=== PATIENT | male | born 1945 | race Caucasian/White ===

== ENCOUNTER 2025-04-13 17:22 | Inpatient (IN) | payer MEDICARE, MEDICAID ==
[~2025-04-13] VITALS: Ht 182.9 cm; Wt 89.4 kg
[~2025-04-13 17:22] MED LIST: AMI2 PO; AMLO5TAB88 MT; APIX5TAB PO; CHOL100022 PO; CLON-493 MT; DIPH25CA83 MT; DIVA250T45 PO; HYDR12.54 MT; IPRA3AMP31 NEB; PANT40TA51 MT; QUET100T MT; SUCR1TAB MT; TC1U15 TP
[2025-04-13 17:27] VITALS: O2SAT 100
[2025-04-13 18:15] LABS: BASOPHILS % 1.1 % (0.0-2.0); EOSINOPHILS % 1.9 % (0.0-5.0); HEMATOCRIT. 28.5 % (42.0-52.0); HEMOGLOBIN. 9.3 g/dL (14.0-18.0); LYMPHOCYTES % 16.5 % (20.0-50.0); MEAN PLATELET VOLUME 8.2 fl (7.4-10.4); MONOCYTES % 10.4 % (2.0-8.0); NEUTROPHILS % 70.1 % (40.0-76.0); PLATELET 426 x1000/uL (130-400); RED BLOOD CELL COUNT 3.45 mill/uL (4.7-6.1); RED CELL DISTRIBUTION WIDTH 16.5 % (11.6-14.6)
[2025-04-13 18:39] LABS: ASPARTATE AMINOTRANSFERASE 21 IU/L (<34); UREA NITROGEN BLOOD 50 mg/dL (9-23)
[2025-04-13 18:40] LABS: BILIRUBIN DIRECT 0.1 mg/dL (<=3.0); BILIRUBIN TOTAL 0.3 mg/dL (0.1-1.0); PROTEIN TOTAL 8.0 g/dL (6.0-8.3); TROPONIN I HIGH SENSITIVITY 16 ng/L (3.0-53)
[2025-04-13 18:42] LABS: CREATININE 3.5 mg/dL (0.6-1.3)
[2025-04-13 19:53] VITALS: BP 123/68; PULSE 70; RESP 19; TEMP 36.418
[2025-04-13 21:05] LABS: INR 1.1
[2025-04-13 21:09] LABS: TROPONIN I HIGH SENSITIVITY 15 ng/L (3.0-53)
[2025-04-13] MEDS ORDERED: ACETAMINOPHEN 325MG TABLET PO PRN ×2 (21:15)
[2025-04-13] MEDS ORDERED: CLONIDINE 0.1MG TABLET PO PRN (21:15)
[2025-04-13] MEDS ORDERED: ONDANSETRON HCL 4MG/2ML INJ IV PRN (21:15)
[2025-04-13] MEDS ORDERED: GUAIFENESIN 200MG/10ML SUGAR FREE UDC PO PRN (21:15)
[2025-04-13] MEDS ORDERED: MAGNESIUM/ALUMINUM HYDROXIDE/SIMETHICONE 30ML UDC PO PRN (21:15)
[2025-04-13] MEDS ORDERED: IPRATROPIUM/ALBUTEROL 0.5-3(2.5)MG/3ML NEB HHN PRN (21:15)
[2025-04-13] MEDS ORDERED: ENOXAPARIN 30MG/0.3ML SYR SUBCUT SCH (22:00)
[2025-04-14] VITALS: BP 94/52; PULSE 70; RESP 20; TEMP 36.8; O2SAT 94
[2025-04-14] MEDS: SODIUM CHLORIDE 0.9% 1,000 ML IV SCH (00:08)
[2025-04-14 03:00] LABS: PHOSPHORUS 4.1 mg/dL (2.5-4.9)
[2025-04-14 04:00] VITALS: BP 133/70; PULSE 70; RESP 19; TEMP 36.8; O2SAT 98
[2025-04-14 06:59] LABS: BASOPHILS % 0.4 % (0.0-2.0); EOSINOPHILS % 0.9 % (0.0-5.0); HEMATOCRIT. 27.7 % (42.0-52.0); HEMOGLOBIN. 8.9 g/dL (14.0-18.0); LYMPHOCYTES % 13.7 % (20.0-50.0); MEAN PLATELET VOLUME 8.7 fl (7.4-10.4); MONOCYTES % 11.0 % (2.0-8.0); NEUTROPHILS % 74.0 % (40.0-76.0); PLATELET 401 x1000/uL (130-400); RED BLOOD CELL COUNT 3.34 mill/uL (4.7-6.1); RED CELL DISTRIBUTION WIDTH 16.2 % (11.6-14.6)
[2025-04-14 07:24] LABS: CREATININE 3.4 mg/dL (0.6-1.3); TRIGLYCERIDE 121.0 mg/dL (0-150); UREA NITROGEN BLOOD 60.0 mg/dL (9-23)
[2025-04-14 07:25] LABS: LDL CHOLESTEROL 69.0 mg/dL (5-100)
[2025-04-14 07:26] LABS: T4 FREE 0.93 ng/dL (0.89-1.76)
[2025-04-14 08:00] VITALS: BP 127/70; PULSE 74; RESP 18; TEMP 36.5; O2SAT 98
[2025-04-14] MEDS: QUETIAPINE FUMARATE 50MG TABLET PO SCH (09:09)
[2025-04-14] MEDS: PANTOPRAZOLE SODIUM 40 MG/VIAL IV SCH (09:09)
[2025-04-14] MEDS: AMIODARONE 200MG TABLET PO SCH (09:09)
[2025-04-14] MEDS: APIXABAN 2.5 MG TABLET PO SCH (09:10)
[2025-04-14 10:05] LABS: CLARITY URINE TURBID (CLEAR); COLOR URINE YELLOW (YELLOW); GLUCOSE URINE NEGATIVE (NEGATIVE); KETONES URINE NEGATIVE (NEGATIVE); LEUKOCYTE ESTERASE URINE 3+ (NEGATIVE); NITRITE URINE POSITIVE (NEGATIVE); OCCULT BLOOD URINE 2+ (NEGATIVE); PH URINE 6.5 (4.5-8.0); PROTEIN URINE 2+ (NEGATIVE); SPECIFIC GRAVITY URINE 1.012 (1.005-1.030); UROBILINOGEN URINE 1.0 E.U./dL (0.2-1.0)
[2025-04-14 10:18] LABS: BACTERIA URINE 4+; RBC URINE 15-25 /hpf (0-2); SQUAMOUS EPITHELIAL CELL URINE NONE SEEN /lpf (RARE/1+); WBC URINE TNTC /hpf (0-2); YEAST URINE NONE SEEN
[2025-04-14 11:51] VITALS: BP 121/66; PULSE 70; RESP 20; TEMP 36.2; O2SAT 100
[2025-04-14] MEDS ORDERED: CEFTRIAXONE 1GM/50ML 50 ML IV SCH (13:00)
[2025-04-14] MEDS: MEROPENEM 1G/100ML 100 ML IV SCH (14:01)
[2025-04-14 16:07] VITALS: BP 118/69; PULSE 68; RESP 18; TEMP 36.3; O2SAT 98
[2025-04-14 20:00] VITALS: BP 128/67; PULSE 69; RESP 18; TEMP 36.7; O2SAT 94
[2025-04-14] MEDS ORDERED: QUETIAPINE FUMARATE 50MG TABLET PO SCH (21:00)
[2025-04-15] VITALS: BP 146/52; PULSE 63; RESP 15; TEMP 36.3; O2SAT 95
[2025-04-15 08:18] VITALS: BP 118/63; PULSE 78; RESP 20; TEMP 37.1; O2SAT 95
[2025-04-15] MEDS: PREDNISONE 20MG TABLET PO SCH (09:05)
[2025-04-15] MEDS: DOCUSATE SODIUM 100MG CAPSULE PO PRN (09:10)
[2025-04-15 11:55] VITALS: BP_SYST 115; BP_SYST 118; BP_DIAS 63; BP_DIAS 68; PULSE 67; PULSE 78; RESP 20; TEMP 36.4; TEMP 37.1; O2SAT 95; O2SAT 98
[2025-04-15 12:04] LABS: HEMATOCRIT. 25.0 % (42.0-52.0); HEMOGLOBIN. 8.0 g/dL (14.0-18.0); MEAN PLATELET VOLUME 8.5 fl (7.4-10.4); PLATELET 396 x1000/uL (130-400); RED BLOOD CELL COUNT 3.01 mill/uL (4.7-6.1); RED CELL DISTRIBUTION WIDTH 16.4 % (11.6-14.6)
[2025-04-15 12:26] LABS: CREATININE 3.1 mg/dL (0.6-1.3); UREA NITROGEN BLOOD 54.0 mg/dL (9-23)
[2025-04-15 16:00] VITALS: BP 121/73; PULSE 69; RESP 18; TEMP 36.3; O2SAT 100
[2025-04-15] MEDS: POTASSIUM CHLORIDE 20MEQ TABLET SR PO SCH ×2 (17:55→20:22)
[2025-04-15 18:05] LABS: BAND% 3.0 % (1.0-6.0); EOSINOPHILS % MANUAL 1.0 % (0.0-5.0); LYMPHOCYTES % MANUAL 2.0 % (20.0-50.0); MONOCYTES % MANUAL 10.0 % (2.0-8.0); NEUTROPHILS % MANUAL 84.0 % (45.0-75.0); PLATELET ESTIMATE NORMAL
[2025-04-15] MEDS: SODIUM CHLORIDE 0.9% 500 ML IV ONE (18:59)
[2025-04-15 20:00] VITALS: BP 110/77; PULSE 74; RESP 18; TEMP 36.3; O2SAT 99
[2025-04-15] MEDS: MUPIROCIN 2% OINT 22GM NS SCH (20:23)
[2025-04-15] MEDS ORDERED: MUPIROCIN 2% OINT 15GM NS SCH (21:00)
[2025-04-16] VITALS: BP 141/71; PULSE 83; RESP 20; TEMP 37.1; O2SAT 96
[2025-04-16 04:00] VITALS: BP 147/76; PULSE 80; RESP 20; TEMP 36.6; O2SAT 95
[2025-04-16 07:46] LABS: BASOPHILS % 0.6 % (0.0-2.0); EOSINOPHILS % 1.5 % (0.0-5.0); HEMATOCRIT. 27.1 % (42.0-52.0); HEMOGLOBIN. 8.4 g/dL (14.0-18.0); LYMPHOCYTES % 10.3 % (20.0-50.0); MEAN PLATELET VOLUME 8.5 fl (7.4-10.4); MONOCYTES % 8.8 % (2.0-8.0); NEUTROPHILS % 78.8 % (40.0-76.0); PLATELET 439 x1000/uL (130-400); RED BLOOD CELL COUNT 3.23 mill/uL (4.7-6.1); RED CELL DISTRIBUTION WIDTH 16.8 % (11.6-14.6)
[2025-04-16 07:50] VITALS: BP 97/62; PULSE 74; RESP 20; TEMP 36.3; O2SAT 100
[2025-04-16 08:10] LABS: CREATININE 2.8 mg/dL (0.6-1.3); UREA NITROGEN BLOOD 42.0 mg/dL (9-23)
[2025-04-16 20:00] VITALS: BP 121/71; PULSE 68; RESP 19; TEMP 36.5; O2SAT 95
[2025-04-17] VITALS: BP 133/76; PULSE 68; RESP 19; TEMP 36.5; O2SAT 95
[2025-04-17 04:00] VITALS: BP 129/73; PULSE 68; RESP 19; TEMP 36.6; O2SAT 94
[2025-04-17 08:00] VITALS: BP 130/73; PULSE 68; RESP 18; TEMP 36.6; O2SAT 98
[2025-04-17 11:04] LABS: BASOPHILS % 1.3 % (0.0-2.0); EOSINOPHILS % 1.1 % (0.0-5.0); HEMATOCRIT. 24.0 % (42.0-52.0); HEMOGLOBIN. 7.8 g/dL (14.0-18.0); LYMPHOCYTES % 15.9 % (20.0-50.0); MEAN PLATELET VOLUME 8.6 fl (7.4-10.4); MONOCYTES % 9.8 % (2.0-8.0); NEUTROPHILS % 71.9 % (40.0-76.0); PLATELET 422 x1000/uL (130-400); RED BLOOD CELL COUNT 2.88 mill/uL (4.7-6.1); RED CELL DISTRIBUTION WIDTH 16.6 % (11.6-14.6)
[2025-04-17 11:24] LABS: CREATININE 2.5 mg/dL (0.6-1.3); UREA NITROGEN BLOOD 37.0 mg/dL (9-23)
[2025-04-17 12:00] VITALS: BP 120/73; PULSE 69; RESP 18; TEMP 36.4; O2SAT 97
[2025-04-17] MEDS: MEROPENEM 1G/100ML 100 ML IV SCH (12:35)
[2025-04-17] MEDS ORDERED: SULF1TAB48 MT (13:22)
[2025-04-17] MEDS ORDERED: APIX2.5T MT (13:26)
[2025-04-18] VITALS: BP 124/76; PULSE 112; RESP 17; TEMP 36.5; O2SAT 95
[2025-04-18 04:00] VITALS: BP 141/81; PULSE 66; RESP 19; TEMP 36.7; O2SAT 97
[2025-04-18 08:00] VITALS: BP 133/80; PULSE 67; RESP 18; TEMP 36.2; O2SAT 96
[2025-04-18 08:19] LABS: BASOPHILS % 0.4 % (0.0-2.0); EOSINOPHILS % 0.6 % (0.0-5.0); HEMATOCRIT. 24.9 % (42.0-52.0); HEMOGLOBIN. 8.2 g/dL (14.0-18.0); LYMPHOCYTES % 17.0 % (20.0-50.0); MEAN PLATELET VOLUME 8.4 fl (7.4-10.4); MONOCYTES % 7.3 % (2.0-8.0); NEUTROPHILS % 74.7 % (40.0-76.0); PLATELET 429 x1000/uL (130-400); RED BLOOD CELL COUNT 3.00 mill/uL (4.7-6.1); RED CELL DISTRIBUTION WIDTH 16.7 % (11.6-14.6)
[2025-04-18 08:39] LABS: CREATININE 2.1 mg/dL (0.6-1.3); UREA NITROGEN BLOOD 38.0 mg/dL (9-23)
[2025-04-18 10:31] VITALS: BP 133/80; PULSE 67; RESP 18; TEMP 97.2
[2025-04-18] MEDS: LORAZEPAM 0.5MG TABLET PO NR (12:30)
[2025-04-30] MEDS ORDERED: SULF1TAB48 MT (14:51)
== END 2025-04-18 13:11 | DRG 872 ==
LOC: ER 17:22 → EDBEDREQ 19:55 → EDBEDREQTM 19:55 → ENRESERV 20:24 → 7WST 20:46 → 4WST 04-16 11:43
PROVIDERS: ADMIT Hospitalist; ATTEND Hospitalist
DX: A41.51 Sepsis due to Escherichia coli [E. coli] (principal); I50.32 Chronic diastolic (congestive) heart failure; G20.A1 Parkinson's disease without dyskinesia, without mention of fluctuations; N17.9 Acute kidney failure, unspecified; N39.0 Urinary tract infection, site not specified; N10 Acute pyelonephritis; Z79.01 Long term (current) use of anticoagulants; B96.20 Unspecified Escherichia coli [E. coli] as the cause of diseases classified elsewhere; I11.0 Hypertensive heart disease with heart failure; F31.9 Bipolar disorder, unspecified; J44.9 Chronic obstructive pulmonary disease, unspecified; D64.9 Anemia, unspecified; E03.9 Hypothyroidism, unspecified; F84.0 Autistic disorder; Z16.12 Extended spectrum beta lactamase (ESBL) resistance; K62.82 Dysplasia of anus; E87.6 Hypokalemia; S30.810A Abrasion of lower back and pelvis, initial encounter; I48.0 Paroxysmal atrial fibrillation; Z79.899 Other long term (current) drug therapy; Z86.19 Personal history of other infectious and parasitic diseases; Z99.3 Dependence on wheelchair; Z22.322 Carrier or suspected carrier of Methicillin resistant Staphylococcus aureus; X58.XXXA Exposure to other specified factors, initial encounter; Y93.89 Activity, other specified; Y92.89 Other specified places as the place of occurrence of the external cause; Y99.8 Other external cause status
CPT/HCPCS: 36415; 71045; 76770; 80048; 80061; 80076; 80165; 81003; 82550; 82728; 83540; 83550; 83735; 83880; 84100; 84145; 84300; 84439; 84443; 84484; 85025; 85044; 86850; 86900; 87077; 87186; 93005; 99285; A4606; J0696; J2185; J2470; J7030; J7512